=== PATIENT | female | born 1980 | race Caucasian/White ===

== ENCOUNTER 2018-11-15 00:25 | Inpatient (IN) | payer SELFPAY ==
[~2018-11-15] VITALS: Ht 167.6 cm; Wt 72.9 kg
--- NOTE | 2018-11-15 00:57 | NUR ---
PT C/O CHRONIC IV HEROIN USE. STATES UTILIZING "MULTIPLE TIMES A DAY." STATES USING L LEG TODAY A COUPLE HOURS AGO. MODERATE SWELLING W/O PITTING NOTED. WARM TO THE TOUCH AND RED. C/O FEVER LIKE S/S AT HOME. L LEG APPEARS SHINY AND IS PAINFUL TO THE TOUCH AND AMBULATION. MONITORING APPLIED. PT TACHYCARDIC. VS OTHERWISE STABLE. AWAITING MD ASSESSMENT.
--- NOTE | 2018-11-15 01:25 | NUR ---
PT HAS POOR PERIPHERAL VASCULATURE AND IV ESTABLISH DELAYED. US IV TO BE STARTED. LAB AT BEDSIDE FOR FIRST SET OF CUTURES AND LAB DRAW.
[2018-11-15] MEDS ORDERED: SODIUM CHLORIDE 0.9% 1,000ML IVBOLUS ONE (01:30)
[2018-11-15] MEDS ORDERED: PIPERACILLIN/TAZO/PMX 4.5GM 100 ML IV ONE (01:30)
[2018-11-15] MEDS ORDERED: VANCOMYCIN PER PHARMACY MC PRN (01:30)
[2018-11-15] MEDS ORDERED: ZOSYN PER PHARMACY MC PRN (01:30)
[2018-11-15] MEDS ORDERED: VANCOMYCIN 1,300 MG in SODIUM CHLORIDE 0.9% 250 ML IV ONE (01:30)
[2018-11-15] MEDS ORDERED: ACETAMINOPHEN 500 MG TABLET PO ONE (01:30)
--- NOTE | 2018-11-15 01:55 | NUR ---
BOTH CULTURES DRAWN AND ABX INITIATED PER OCT. PT TO US.
[2018-11-15] MEDS ORDERED: ACETAMINOPHEN 500 MG TABLET ONE (01:59)
[2018-11-15 02:03] LABS: MEAN CORPUSCULAR HEMOGLOBIN 29.1 pg (27.0-34.8); MEAN CORPUSCULAR HGB CONC 34.4 g/dL (32.4-35.8); MEAN CORPUSCULAR VOLUME 84.4 fL (80-100); MEAN PLATELET VOLUME 7.3 fL (7.4-10.4); PLATELET COUNT 402 x10^3/uL (130-400); RED BLOOD COUNT 3.22 x10^6/uL (3.82-5.3); RED CELL DISTRIBUTION WIDTH 13.6 % (9.6-15.2)
[2018-11-15 02:04] LABS: HCT (SEDRATE) 27.1 % (34.6-47.8)
[2018-11-15 02:16] LABS: ALANINE AMINOTRANSFERASE 27 U/L (12-78); ALBUMIN 2.1 g/dL (3.4-5.0); ANION GAP 7 mmol/L (5-15); CALCIUM 8.4 mg/dL (8.5-10.1); CHLORIDE 100 mmol/L (98-107); CREATININE 1.16 mg/dL (0.55-1.02)
[2018-11-15 02:22] LABS: ALKALINE PHOSPHATASE 348 U/L (45-117); BILIRUBIN,TOTAL 0.5 mg/dL (0.2-1.0)
--- NOTE | 2018-11-15 02:22 | NUR ---
PT TO IMAGING.
[2018-11-15 02:29] LABS: C-REACTIVE PROTEIN, QUANT > 19.00 mg/dL (0.02-0.49)
--- NOTE | 2018-11-15 02:45 | NUR ---
PT TO CT.
[2018-11-15 03:17] LABS: BASOPHILS # (AUTO) 0.07 x10^3/uL (0-0.1); BASOPHILS % (AUTO) 0 % (0-1); EOSINOPHILS # (AUTO) 0.07 x10^3/uL (0-0.4); EOSINOPHILS % (AUTO) 0 % (1-7); LYMPHOCYTES # (AUTO) 1.74 x10^3/uL (1-3.4); LYMPHOCYTES % (AUTO) 8 % (22-44); MD SCAN; MONOCYTES # (AUTO) 0.97 x10^3/uL (0.2-0.8); MONOCYTES % (AUTO) 4 % (2-9); NEUTROPHILS # (AUTO) 19.29 x10^3/uL (1.8-6.8); NEUTROPHILS % (AUTO) 87 % (42-75)
--- NOTE | 2018-11-15 03:27 | NUR ---
AWAITING CT RESULTS. CALL LIGHT WITHIN REACH. ABX INFUSING APPROPRIATELY. NO IMMEDIATE NEEDS FROM PT.
[2018-11-15] MEDS ORDERED: hydrALAzine 20 MG/ML, 1ML IVPush PRN (04:30)
[2018-11-15] MEDS: ENOXAPARIN 60 MG/0.6 ML SQ SCH ×2 (05:33→17:04)
[2018-11-15] MEDS: CEFTRIAXONE PMX 2GM/50ML 50 ML IV SCH (05:33)
[2018-11-15] MEDS ORDERED: OMNIPAQUE 350 MG/ML, 100ML BOTTLE ONE (05:42)
[2018-11-15 06:37] VITALS: BP 126/82
[2018-11-15] MEDS ORDERED: DOXYCYCLINE 100MG CAP PO SCH (09:00)
[2018-11-15] MEDS ORDERED: VANCOMYCIN 1,300 MG in SODIUM CHLORIDE 0.9% 250 ML IV SCH (09:00)
[2018-11-15 09:45] VITALS: BP 115/69
[2018-11-15] MEDS: ACETAMINOPHEN 325 MG TABLET PO PRN (12:23)
[2018-11-15] MEDS: VANCOMYCIN 1,300 MG in SODIUM CHLORIDE 0.9% 250 ML IV SCH (14:00)
[2018-11-15 14:37] VITALS: BP 120/78
[2018-11-15 18:48] VITALS: BP 137/88
[2018-11-15] MEDS ORDERED: MORPHINE SULFATE 4 MG/ML, 1ML ONE (21:05)
[2018-11-15] MEDS: morphine SULFATE 10 MG/ML, 1ML IVPush PRN (21:09)
[2018-11-15] MEDS: LORazepam 2 MG/ML, 1ML IVPush PRN (21:10)
[2018-11-16] MEDS ORDERED: MORPHINE SULFATE 4 MG/ML, 1ML ONE ×3 (00:24→02:06)
[2018-11-16] MEDS: morphine SULFATE 10 MG/ML, 1ML IVPush PRN ×3 (00:27→05:16)
[2018-11-16 01:15] VITALS: BP 137/83
[2018-11-16] MEDS: VANCOMYCIN 1,300 MG in SODIUM CHLORIDE 0.9% 250 ML IV SCH ×2 (01:53→14:22)
[2018-11-16] MEDS ORDERED: morphine SULFATE 10 MG/ML, 1ML IVPush ONE (02:30)
[2018-11-16] MEDS: ENOXAPARIN 60 MG/0.6 ML SQ SCH ×2 (04:14→16:52)
[2018-11-16] MEDS: CEFTRIAXONE PMX 2GM/50ML 50 ML IV SCH (04:14)
[2018-11-16] MEDS: LORazepam 2 MG/ML, 1ML IVPush PRN (05:16)
[2018-11-16 05:32] LABS: MEAN CORPUSCULAR HEMOGLOBIN 28.1 pg (27.0-34.8); MEAN CORPUSCULAR HGB CONC 32.8 g/dL (32.4-35.8); MEAN CORPUSCULAR VOLUME 85.7 fL (80-100); MEAN PLATELET VOLUME 7.8 fL (7.4-10.4); PLATELET COUNT 459 x10^3/uL (130-400); RED BLOOD COUNT 3.28 x10^6/uL (3.82-5.3); RED CELL DISTRIBUTION WIDTH 13.9 % (9.6-15.2)
[2018-11-16 05:42] LABS: ALANINE AMINOTRANSFERASE 36 U/L (12-78); ANION GAP 8 mmol/L (5-15); CHLORIDE 103 mmol/L (98-107); CREATININE 0.78 mg/dL (0.55-1.02)
[2018-11-16 05:44] LABS: ALKALINE PHOSPHATASE 411 U/L (45-117); BILIRUBIN,TOTAL 0.6 mg/dL (0.2-1.0)
[2018-11-16 06:03] LABS: BASOPHILS % (AUTO) 1 % (0-1); EOSINOPHILS # (AUTO) 0.14 x10^3/uL (0-0.4); EOSINOPHILS % (AUTO) 1 % (1-7); LYMPHOCYTES # (AUTO) 2.39 x10^3/uL (1-3.4); LYMPHOCYTES % (AUTO) 11 % (22-44); MD SCAN; MONOCYTES # (AUTO) 0.79 x10^3/uL (0.2-0.8); MONOCYTES % (AUTO) 4 % (2-9); NEUTROPHILS # (AUTO) 17.78 x10^3/uL (1.8-6.8); NEUTROPHILS % (AUTO) 84 % (42-75)
[2018-11-16 07:10] VITALS: BP 143/92
[2018-11-16] MEDS: METHADONE 5 MG TABLET PO SCH ×3 (08:22→20:00)
[2018-11-16] MEDS ORDERED: METHADONE 10 MG TABLET PO ONE (08:30)
[2018-11-16] MEDS ORDERED: LORazepam 2 MG/ML, 1ML IVPush PRN (09:30)
[2018-11-16 15:34] VITALS: BP 134/92
[2018-11-16] MEDS: ACETAMINOPHEN 325 MG TABLET PO PRN (16:57)
[2018-11-16 18:45] VITALS: BP 130/78
[2018-11-17] MEDS ORDERED: VANCOMYCIN 1,500 MG in SODIUM CHLORIDE 0.9% 250 ML IV SCH (02:00)
== END 2018-11-16 22:02 | disposition left against medical advice (07) | DRG 872 ==
LOC: ED 03:15 → EDIP 03:49 → 4WST 05:06
PROVIDERS: ADMIT Family Medicine; ATTEND Family Medicine
DX: A41.9 Sepsis, unspecified organism (principal); F11.23 Opioid dependence with withdrawal; I82.4Z2 Acute embolism and thrombosis of unspecified deep veins of left distal lower extremity; L03.116 Cellulitis of left lower limb; F17.210 Nicotine dependence, cigarettes, uncomplicated
CPT/HCPCS: 36415; 80053; 80074; 80202; 83605; 85025; 85651; 86140; 87040; 87077; 87147; 87186; 87521; 87806; 93308; 93321; 93325; 96365; 96366; 96368; 99285; G0378; J0696; J1650; J2543; J3370; Q9967; G0475; J2060; J2270; J7030; J7050